=== PATIENT | male | born 1940 | race Caucasian/White ===

== ENCOUNTER 2020-07-16 14:32 | Inpatient (IN) | payer OTHER ==
[~2020-07-16] VITALS: Ht 188 cm; Wt 77.2 kg
[~2020-07-16 14:32] MED LIST: ALBU1AER4 IN; ALPHTAB PO; AMIO200T33 PO; ASCO500T11 PO; B-COCAP36 PO; CAR3125T PO; DOXY-338 PO; ESCI20TA51 PO; FURO40TA4 PO; LEVO50TA7 PO; LISI2.5T47 PO; LOVA40TA72 PO; NITR0.4S29 SL; OMEG1CAP59 PO; POTA10TA51 PO; RANO500T2 PO; WARF1TAB36 PO
[2020-07-16 15:37] LABS: Basophils # (auto) 0 10 ^3/uL (0-0.2); Basophils % (auto) 0.4 % (0.0-2.0); Eosinophils # (auto) 0.2 10 ^3/uL (0-0.8); Eosinophils % (auto) 3.6 % (0.0-7.0); Hematocrit 37.4 % (41.0-53.0); Hemoglobin 12.3 g/dL (13.5-17.5); Lymphocytes % (auto) 23.1 % (10.0-50.0); Mean Corpuscular Hemoglobin 31.5 pg (28.0-32.0); Mean Corpuscular Hgb Conc. 32.8 g/dL (32.0-36.0); Mean Corpuscular Volume 95.9 fL (80.0-100.0); Monocytes # (auto) 0.5 10 ^3/uL (0-1.3); Monocytes % (auto) 11.2 % (0.0-12.0); Neutrophils # (auto) 2.7 10 ^3/uL (1.6-8.6); Neutrophils % (auto) 61.7 % (37.0-80.0); Nucleated Red Blood Cells % 0.1 %; Platelet Count (auto) 136 10^3/uL (140-450); Red Cell Distribution Width 15.1 % (11.8-14.3); White Blood Cell 4.4 10^3/uL (4.4-10.8)
[2020-07-16 15:49] LABS: Albumin 3.3 g/dL (3.4-5.0); Calcium 8.5 mg/dL (8.5-10.1); Potassium 4.5 mmol/L (3.5-5.1)
[2020-07-16 15:52] LABS: BUN/Creatinine Ratio 26.8; Bilirubin, Total 1.1 mg/dL (0.2-1.0); Total Protein 6.8 g/dL (6.4-8.2)
[2020-07-16 15:53] LABS: CRP High Sensitivity 0.6 mg/dL (< 0.3)
[2020-07-16] MEDS ORDERED: ASPirin 81 mg TAB PO ONE (16:15)
[2020-07-16] MEDS ORDERED: ENOXAPARIN SOD 80 MG/0.8ML SYRINGE SC ONE (16:15)
[2020-07-16] MEDS ORDERED: MORPHINE SULF INJ 2 MG/ML SYRINGE 1ML IV PRN ×2 (17:00→17:30)
[2020-07-16] MEDS ORDERED: NITROGLYCERIN 0.4 MG SL TAB SL PRN (17:00)
[2020-07-16 17:20] LABS: INR 1.36 (0.9-1.15)
[2020-07-16] MEDS ORDERED: ONDANSETRON HCL 4 MG/2 ML VIAL IV PRN (17:30)
[2020-07-16] MEDS ORDERED: LACTULOSE 20Gm/30ML SOLN PO PRN (17:30)
[2020-07-16] MEDS ORDERED: NITROGLYCERIN 0.4 MG SL TAB SL SCH (17:30)
[2020-07-16] MEDS ORDERED: ACETAMINOPHEN 500 MG TAB PO PRN (17:30)
[2020-07-16] MEDS ORDERED: traMADol HCL 50 MG TAB PO PRN (17:30)
[2020-07-16] MEDS ORDERED: IOHEXOL 350 MG/ML 100ML IJ ONE (17:40)
[2020-07-16] MEDS ORDERED: WARFARIN SODIUM 1 MG TAB PO ONE (17:45)
[2020-07-16] MEDS: CITALOPRAM HYDROBR 20 MG TAB PO SCH (18:41)
[2020-07-16 21:09] VITALS: BP 102/64
--- NOTE | 2020-07-16 21:09 | NUR ---
Telemetry admit from ER SHADIANA PAULA admitted to Telemetry unit after no SBAR was received.Patient oriented to BRENNA GOULD RN primary RN, unit, room, bed, and unit policies regarding patient care and visiting hours. Patient now on continuous telemetry monitoring, tele box #[id number] and telemetry reading on arrival to unit is Paced in the 60s. Patient weighed by bed scale and encouraged to call if they need something. All questions and concerns addressed, patient verbalized understanding.
[2020-07-16 22:00] VITALS: BP 102/64
[2020-07-16] MEDS: FATTY ACIDS PO SCH (22:00)
[2020-07-16] MEDS: OMEGA PO SCH (22:00)
[2020-07-16] MEDS: SODIUM CHLOR 0.9% PF (SALINE LOCK) 10ML VIAL/SYR IV SCH (22:01)
[2020-07-16] MEDS: ENOXAPARIN SOD 80 MG/0.8ML SYRINGE SC SCH (22:01)
[2020-07-16] MEDS: PRAVASTATIN SODIUM 20 MG TAB PO SCH (22:01)
[2020-07-17 05:00] VITALS: BP 112/68
[2020-07-17] MEDS: SODIUM CHLOR 0.9% PF (SALINE LOCK) 10ML VIAL/SYR IV SCH ×3 (06:04→20:44)
[2020-07-17] MEDS: LEVOTHYROXINE SODIUM 50 MCG TAB PO SCH (06:04)
[2020-07-17 06:24] LABS: INR 1.34 (0.9-1.15); Partial Thromboplastin Time 46.4 sec (23.0-31.2)
--- NOTE | 2020-07-17 07:30 | NUR ---
Opening Shift Note Assuming care of patient at this time. Patient is awake and alert. Patient denies pain. Patient shows no signs or symptoms of distress or shortness of breath. Bed is locked and lowered with side rails up x2. Instructed patient on the plan of care for today and to call for assistance as needed. Call light within reach. Will continue to round hourly and as needed.
[2020-07-17 08:25] VITALS: BP 109/63
[2020-07-17 09:58] LABS: Urine Bacteria NONE SEEN /hpf (None Seen); Urine Blood TRACE /uL (Negative); Urine WBC 4 /hpf (0 - 3)
[2020-07-17] MEDS: FATTY ACIDS PO SCH ×2 (10:00→20:44)
[2020-07-17] MEDS: B COMPLEX PO SCH (10:00)
[2020-07-17] MEDS: BIOTIN PO SCH (10:00)
[2020-07-17] MEDS: OMEGA PO SCH ×2 (10:00→20:44)
[2020-07-17] MEDS: FOLIC ACI PO SCH (10:00)
[2020-07-17] MEDS: ASCORBIC ACID 500 MG TAB PO SCH (10:10)
[2020-07-17] MEDS: RANOLAZINE ER 500 MG TAB PO SCH (10:11)
[2020-07-17] MEDS: AMIODARONE HCL 200 MG TAB PO SCH (10:12)
[2020-07-17] MEDS: LISINOPRIL 5 MG TAB PO SCH (10:13)
[2020-07-17] MEDS: ENALAPRIL MALEATE 2.5 MG TAB PO SCH (10:13)
[2020-07-17] MEDS: CARVEDILOL 3.125 MG TAB PO SCH ×2 (10:14→20:44)
[2020-07-17] MEDS: ENOXAPARIN SOD 80 MG/0.8ML SYRINGE SC SCH ×2 (10:15→20:44)
[2020-07-17] MEDS: NITROGLYCERIN 0.2MG/HR TOPICAL PATCH TD SCH (10:15)
--- NOTE | 2020-07-17 11:45 | NUR ---
WOUND CARE NOTE: WOUND CARE IN TO SEE PATIENT PER BEDSIDE NURSE PHOTOGRAPHS. PATIENT ADMITTED TO [facility] FOR CHEST PAIN. PATIENT NOTED TO HAVE SKIN INTEGRITY ISSUE UPON ADMISSION. PHOTOGRAPH TAKEN BY BEDSIDE NURSE FOR REFERENCE AT THAT TIME. PATIENT NOTED TO HAVE REDDENING TO SACRUM. PATIENT EMILY SCORE IS 19. ZGUARD APPLIED TO SACRUM AND COVERED WITH OPTIFOAM GENTLE SACRAL DRESSING. NO OTHER SKIN INTEGRITY ISSUE NOTED. RECOMMENDATION: BID/PRN MOISTURE BARRIER CREAM APPLICATION TO SACRUM. FREQUENT Q2HOUR REPOSITIONING CONDITION PERMITS. SKIN/WOUND CARE PLAN. CONTINUED MONITORING BY WOUND CARE TEAM. Addendum: 07/17/20 at 1332 by ERIKA BABIN RN RN Amended: Links added.
--- NOTE | 2020-07-17 12:00 | NUR ---
Cardiology Consult Isabela Maurice NP has completed cardio consult today. Stress test will be done on Monday. Pacemaker interrogation to be completed later today.
[2020-07-17 12:40] VITALS: BP 99/60
--- NOTE | 2020-07-17 13:47 | NUR ---
Pacemaker Interrogation Pacemaker interrogation completed at this time.
--- NOTE | 2020-07-17 14:20 | NUR ---
Stress Test Patient taken off unit for part 1 of stress test at this time.
--- NOTE | 2020-07-17 14:44 | NUR ---
Belongings Patient's valuable belongings, nail clipper and pocket knife returned to patient. Copying Machine Mechanic, Sowmya, is aware.
[2020-07-17] MEDS ORDERED: OPTISON 3ml Vial for INJ IV ONE ×2 (15:46→16:00)
--- NOTE | 2020-07-17 16:18 | NUR ---
Nutrition Assessment Notes Please refer to link for full assessment notes. Est Energy needs: 7340-6526 kcals (20-23 kcal/kgBW) Est Protein needs: 81-89 gms/day (1.0-1.1 gm/kgBW) Will continue to monitor and reassess prn. Addendum: 07/17/20 at [address] Amended: Links added.
[2020-07-17 16:22] VITALS: BP 106/61
--- NOTE | 2020-07-17 17:30 | NUR ---
Wound Care Applied z-guard and optifoam to patient's sacral area at this time. Patient tolerated well. No distress noted. Patient currently up to chair at bedside awaiting dinner.
[2020-07-17] MEDS: CITALOPRAM HYDROBR 20 MG TAB PO SCH (18:20)
--- NOTE | 2020-07-17 19:21 | NUR ---
Closing Shift Note Patient resting in bed. No distress noted. Report given. Will endorse care to the canine deputy RN.
[2020-07-17] MEDS: PRAVASTATIN SODIUM 20 MG TAB PO SCH (20:43)
[2020-07-17 21:52] VITALS: BP 90/55
[2020-07-18 05:05] VITALS: BP 102/63
[2020-07-18] MEDS: SODIUM CHLOR 0.9% PF (SALINE LOCK) 10ML VIAL/SYR IV SCH ×3 (06:15→21:43)
[2020-07-18] MEDS: LEVOTHYROXINE SODIUM 50 MCG TAB PO SCH (06:15)
[2020-07-18 09:00] VITALS: BP 110/62
[2020-07-18] MEDS: ENALAPRIL MALEATE 2.5 MG TAB PO SCH (09:22)
[2020-07-18] MEDS: ASCORBIC ACID 500 MG TAB PO SCH (09:23)
[2020-07-18] MEDS: LISINOPRIL 5 MG TAB PO SCH (09:24)
[2020-07-18] MEDS: RANOLAZINE ER 500 MG TAB PO SCH (09:24)
[2020-07-18] MEDS: AMIODARONE HCL 200 MG TAB PO SCH (09:24)
[2020-07-18] MEDS: CARVEDILOL 3.125 MG TAB PO SCH ×2 (09:25→21:44)
[2020-07-18] MEDS: NITROGLYCERIN 0.2MG/HR TOPICAL PATCH TD SCH (09:27)
[2020-07-18] MEDS: ENOXAPARIN SOD 80 MG/0.8ML SYRINGE SC SCH ×2 (09:29→21:48)
[2020-07-18] MEDS: FATTY ACIDS PO SCH ×2 (09:38→21:44)
[2020-07-18] MEDS: BIOTIN PO SCH (09:38)
[2020-07-18] MEDS: B COMPLEX PO SCH (09:38)
[2020-07-18] MEDS: OMEGA PO SCH ×2 (09:38→21:44)
[2020-07-18] MEDS: FOLIC ACI PO SCH (09:38)
[2020-07-18 13:00] VITALS: BP 98/63
--- NOTE | 2020-07-18 16:40 | NUR ---
Anxiety Patient states he is feeling anxious at this time. Will administer patient's anxiety/depression medication that is scheduled for 1800 at this time.
[2020-07-18] MEDS: CITALOPRAM HYDROBR 20 MG TAB PO SCH (16:41)
[2020-07-18 17:00] VITALS: BP 93/54
--- NOTE | 2020-07-18 18:20 | NUR ---
Wound Care Applied z-guard and optifoam to patient's sacral area at this time. Patient tolerated well. No distress noted.
--- NOTE | 2020-07-18 18:58 | NUR ---
Closing Shift Note Patient resting in bed. No distress noted. Will endorse care to the hotel night auditor RN.
[2020-07-18] MEDS: PRAVASTATIN SODIUM 20 MG TAB PO SCH (21:48)
[2020-07-18 22:00] VITALS: BP 90/62
[2020-07-19 05:00] VITALS: BP 112/63
--- NOTE | 2020-07-19 05:00 | NUR ---
Wound care Provided wound care to sacrum, place optifoam and moisture barrier per MD orders
[2020-07-19] MEDS: SODIUM CHLOR 0.9% PF (SALINE LOCK) 10ML VIAL/SYR IV SCH ×3 (06:14→22:00)
[2020-07-19] MEDS: LEVOTHYROXINE SODIUM 50 MCG TAB PO SCH (06:35)
--- NOTE | 2020-07-19 07:02 | NUR ---
End of Shift Note Endorsed care to dayshift RN. At this time patient has no s/s of distress or SOB.
[2020-07-19 09:00] VITALS: BP 96/62
[2020-07-19] MEDS: ASCORBIC ACID 500 MG TAB PO SCH (09:12)
[2020-07-19] MEDS: AMIODARONE HCL 200 MG TAB PO SCH (09:13)
[2020-07-19] MEDS: RANOLAZINE ER 500 MG TAB PO SCH (09:14)
[2020-07-19] MEDS: ENOXAPARIN SOD 80 MG/0.8ML SYRINGE SC SCH ×2 (09:14→22:37)
[2020-07-19] MEDS: LISINOPRIL 5 MG TAB PO SCH (09:16)
[2020-07-19] MEDS: ENALAPRIL MALEATE 2.5 MG TAB PO SCH (09:16)
[2020-07-19] MEDS: NITROGLYCERIN 0.2MG/HR TOPICAL PATCH TD SCH (09:16)
[2020-07-19] MEDS: FOLIC ACI PO SCH (09:17)
[2020-07-19] MEDS: B COMPLEX PO SCH (09:17)
[2020-07-19] MEDS: FATTY ACIDS PO SCH ×2 (09:17→22:00)
[2020-07-19] MEDS: BIOTIN PO SCH (09:17)
[2020-07-19] MEDS: OMEGA PO SCH ×2 (09:17→22:00)
[2020-07-19] MEDS: CARVEDILOL 3.125 MG TAB PO SCH ×2 (09:17→22:00)
[2020-07-19 13:00] VITALS: BP 107/69
[2020-07-19 16:53] VITALS: BP 109/71
[2020-07-19] MEDS: CITALOPRAM HYDROBR 20 MG TAB PO SCH (17:24)
--- NOTE | 2020-07-19 19:18 | NUR ---
Closing Shift Note Patient resting in bed. No distress noted. Report given. Will endorse care to the overnight cashier RN.
[2020-07-19 22:00] VITALS: BP 120/75
[2020-07-19] MEDS: PRAVASTATIN SODIUM 20 MG TAB PO SCH (22:37)
[2020-07-20 05:00] VITALS: BP 116/67
[2020-07-20] MEDS: SODIUM CHLOR 0.9% PF (SALINE LOCK) 10ML VIAL/SYR IV SCH ×3 (05:50→22:21)
[2020-07-20] MEDS: LEVOTHYROXINE SODIUM 50 MCG TAB PO SCH (06:43)
--- NOTE | 2020-07-20 07:25 | NUR ---
End of Shift Note Endorsed care to dayshift RN. At this time patient has no s/s of distress or SOB.
--- NOTE | 2020-07-20 07:40 | NUR ---
Patient sitting in chair at bedside with no distress noted at this time. Denies any pain. Patient stable.
[2020-07-20 08:30] VITALS: BP 126/76
[2020-07-20] MEDS ORDERED: ADENOSINE 65 MG in GIVE UN-DILUTED 0 ML IV STA (08:36)
--- NOTE | 2020-07-20 09:50 | NUR ---
Patient still sitting in chair at bedside. Patient stable at this time.
--- NOTE | 2020-07-20 11:05 | NUR ---
Patient taken via wheelchair to [facility] for stress test.
[2020-07-20 11:15] VITALS: BP 115/75
[2020-07-20] MEDS: ASCORBIC ACID 500 MG TAB PO SCH (13:28)
[2020-07-20] MEDS: ENOXAPARIN SOD 80 MG/0.8ML SYRINGE SC SCH ×2 (13:28→22:21)
[2020-07-20] MEDS: LISINOPRIL 5 MG TAB PO SCH (13:28)
[2020-07-20] MEDS: OMEGA PO SCH ×2 (13:30→22:00)
[2020-07-20] MEDS: B COMPLEX PO SCH (13:30)
[2020-07-20] MEDS: FOLIC ACI PO SCH (13:30)
[2020-07-20] MEDS: NITROGLYCERIN 0.2MG/HR TOPICAL PATCH TD SCH (13:30)
[2020-07-20] MEDS: BIOTIN PO SCH (13:30)
[2020-07-20] MEDS: AMIODARONE HCL 200 MG TAB PO SCH (13:30)
[2020-07-20] MEDS: FATTY ACIDS PO SCH ×2 (13:30→22:00)
[2020-07-20] MEDS: SACUBITRIL-VALSARTAN 24mg/26mg TAB PO SCH (13:31)
[2020-07-20] MEDS: RANOLAZINE ER 500 MG TAB PO SCH (13:31)
[2020-07-20] MEDS: CARVEDILOL 3.125 MG TAB PO SCH ×2 (13:32→22:00)
--- NOTE | 2020-07-20 13:35 | NUR ---
Scheduled medications given per order. Patient sitting in chair at bedside. Patient stable.
--- NOTE | 2020-07-20 14:09 | NUR ---
Nutrition Followup Notes Pt wt is 77.3 kg. Pt was sitting in a chair sleeping with no relatives at bedside when rounded this morning. Pt is with a 2gm Sodium diet, appetite is good aeb 100% PO intake per RN doc. Est Energy needs: 9118-6392 kcals (20-23 kcal/kgBW) Est Protein needs: 81-89 gms/day (1.0-1.1 gm/kgBW) Will continue to monitor and reassess prn. LABS: TROPONIIN 0.071 H, ALB 3.3 L GI: Pt had 2 BM on 07/19 per RN doc BS: 19 low risk. Refer to wound assessment report for full details. PES: No current Nutritional Pr Comments Will continue to monitor PO status, skin status, pertinent labs and weight trends. Will f/u in 3-5 days. 1) Continue to closely monitor pt PO intake to meet at least 75% of meals 2) Continue current plan of care
--- NOTE | 2020-07-20 15:00 | NUR ---
Patient stable while sitting in chair at bedside.
[2020-07-20 16:43] VITALS: BP 95/46
[2020-07-20] MEDS: CITALOPRAM HYDROBR 20 MG TAB PO SCH (18:17)
--- NOTE | 2020-07-20 18:17 | NUR ---
Patient sitting in chair at bedside, eating dinner. Scheduled medication given per order. Patient denies any pain at this time. Patient stable.
[2020-07-20 22:03] VITALS: BP 93/56
[2020-07-20] MEDS: PRAVASTATIN SODIUM 20 MG TAB PO SCH (22:21)
[2020-07-21 05:00] VITALS: BP 91/52
[2020-07-21 05:51] VITALS: BP 91/52
[2020-07-21] MEDS: SODIUM CHLOR 0.9% PF (SALINE LOCK) 10ML VIAL/SYR IV SCH ×3 (06:35→21:52)
[2020-07-21] MEDS: LEVOTHYROXINE SODIUM 50 MCG TAB PO SCH (06:35)
--- NOTE | 2020-07-21 07:30 | NUR ---
Patient asleep while sitting in chair at bedside. No distress noted at this time.
--- NOTE | 2020-07-21 08:15 | NUR ---
Patient sitting in chair at bedside. Denies any pain at this time. Patient stable.
[2020-07-21 08:17] LABS: Basophils # (auto) 0 10 ^3/uL (0-0.2); Basophils % (auto) 0.7 % (0.0-2.0); Eosinophils # (auto) 0.3 10 ^3/uL (0-0.8); Eosinophils % (auto) 7.2 % (0.0-7.0); Hemoglobin 12.4 g/dL (13.5-17.5); Lymphocytes # (auto) 0.8 10 ^3/uL (0.4-5.4); Lymphocytes % (auto) 22.4 % (10.0-50.0); Mean Corpuscular Hemoglobin 31.8 pg (28.0-32.0); Mean Corpuscular Hgb Conc. 33.6 g/dL (32.0-36.0); Mean Corpuscular Volume 94.6 fL (80.0-100.0); Monocytes # (auto) 0.4 10 ^3/uL (0-1.3); Monocytes % (auto) 11.5 % (0.0-12.0); Neutrophils # (auto) 2.1 10 ^3/uL (1.6-8.6); Neutrophils % (auto) 58.2 % (37.0-80.0); Nucleated Red Blood Cells % 0.3 %; Platelet Count (auto) 134 10^3/uL (140-450); Red Blood Cells 3.91 10^6/uL (4.5-5.90); Red Cell Distribution Width 14.9 % (11.8-14.3); White Blood Cell 3.6 10^3/uL (4.4-10.8)
[2020-07-21 08:32] LABS: INR 1.19 (0.9-1.15); Partial Thromboplastin Time 40.4 sec (23.0-31.2)
[2020-07-21 08:35] LABS: Calcium 8.2 mg/dL (8.5-10.1); Potassium 4.2 mmol/L (3.5-5.1)
[2020-07-21 08:38] LABS: BUN/Creatinine Ratio 30.6
[2020-07-21 08:56] VITALS: BP 101/60
[2020-07-21] MEDS: AMIODARONE HCL 200 MG TAB PO SCH (09:50)
[2020-07-21] MEDS: BIOTIN PO SCH (09:50)
[2020-07-21] MEDS: FATTY ACIDS PO SCH ×2 (09:50→21:52)
[2020-07-21] MEDS: OMEGA PO SCH ×2 (09:50→21:52)
[2020-07-21] MEDS: B COMPLEX PO SCH (09:50)
[2020-07-21] MEDS: FOLIC ACI PO SCH (09:50)
[2020-07-21] MEDS: SACUBITRIL-VALSARTAN 24mg/26mg TAB PO SCH (09:51)
[2020-07-21] MEDS: CARVEDILOL 3.125 MG TAB PO SCH ×2 (09:51→21:52)
[2020-07-21] MEDS: ASCORBIC ACID 500 MG TAB PO SCH (09:51)
[2020-07-21] MEDS: RANOLAZINE ER 500 MG TAB PO SCH (09:51)
[2020-07-21] MEDS: NITROGLYCERIN 0.2MG/HR TOPICAL PATCH TD SCH (09:51)
[2020-07-21] MEDS: LISINOPRIL 5 MG TAB PO SCH (09:52)
[2020-07-21] MEDS: ENOXAPARIN SOD 80 MG/0.8ML SYRINGE SC SCH (09:57)
--- NOTE | 2020-07-21 09:58 | NUR ---
Patient sitting in chair at bedside. Morning medications withheld; patient NPO for heart cath today at 1300.
--- NOTE | 2020-07-21 10:59 | NUR ---
Patient stable with Dr. Crain at bedside. Patient sitting in chair.
--- NOTE | 2020-07-21 11:55 | NUR ---
Patient taken to [facility] via gurney.
[2020-07-21] MEDS ORDERED: ANGIOMAX 250 MG VIAL IV ONE (12:11)
[2020-07-21] MEDS ORDERED: IOHEXOL 350 MG/ML 100ML IJ ONE (12:12)
[2020-07-21] MEDS ORDERED: fentaNYL CITRATE 100 MCG/2 ML VL ONE (12:12)
[2020-07-21] MEDS ORDERED: SODIUM CHL 0.9% 50 ML ONE (12:12)
[2020-07-21] MEDS ORDERED: MIDAZOLAM HCL 1MG/1ML-2 ML VIAL ONE (12:12)
[2020-07-21] MEDS ORDERED: LIDOCAINE 2%HCL (LOCAL ANESTH.) INJ 20ML MDV ONE (12:12)
[2020-07-21] MEDS ORDERED: CLOPIDOGREL 300 MG TAB ONE (13:00)
[2020-07-21] MEDS ORDERED: ASPirin 325 MG TAB ONE (13:00)
[2020-07-21] MEDS ORDERED: CLOPIDOGREL BISULFATE 75 MG TAB PO ONE (13:30)
--- NOTE | 2020-07-21 14:00 | NUR ---
Received report from Lidar Technician: stented graft to LAD.
--- NOTE | 2020-07-21 14:15 | NUR ---
Patient returned to unit in stable condition with clean, dry dressing in right groin. Patient stable with no pain or discomfort.
--- NOTE | 2020-07-21 15:45 | NUR ---
Patient asleep with no distress noted.
[2020-07-21 17:00] VITALS: BP 116/71
--- NOTE | 2020-07-21 17:20 | NUR ---
Patient resting comfortably in bed with eyes closed. No distress noted.
[2020-07-21] MEDS: CITALOPRAM HYDROBR 20 MG TAB PO SCH (18:48)
[2020-07-21] MEDS: PRAVASTATIN SODIUM 20 MG TAB PO SCH (21:53)
[2020-07-21 22:00] VITALS: BP 100/53
[2020-07-22 05:00] VITALS: BP 91/54
[2020-07-22] MEDS: LEVOTHYROXINE SODIUM 50 MCG TAB PO SCH (06:32)
[2020-07-22] MEDS: SODIUM CHLOR 0.9% PF (SALINE LOCK) 10ML VIAL/SYR IV SCH (06:32)
[2020-07-22 08:00] VITALS: BP 113/65
--- NOTE | 2020-07-22 08:00 | NUR ---
Patient sitting in chair at bedside. Denies any pain at this time. Patient stable.
[2020-07-22 09:00] VITALS: BP 113/65
[2020-07-22] MEDS: SACUBITRIL-VALSARTAN 24mg/26mg TAB PO SCH (09:47)
[2020-07-22] MEDS: AMIODARONE HCL 200 MG TAB PO SCH (09:47)
[2020-07-22] MEDS: RANOLAZINE ER 500 MG TAB PO SCH (09:47)
[2020-07-22] MEDS: ASCORBIC ACID 500 MG TAB PO SCH (09:47)
[2020-07-22] MEDS: LISINOPRIL 5 MG TAB PO SCH (09:49)
[2020-07-22] MEDS: NITROGLYCERIN 0.2MG/HR TOPICAL PATCH TD SCH (09:49)
[2020-07-22] MEDS: CARVEDILOL 3.125 MG TAB PO SCH (09:50)
--- NOTE | 2020-07-22 09:50 | NUR ---
Scheduled morning medications given per order. Patient sitting in chair at bedside with no complaint of pain or discomfort. Patient stable.
[2020-07-22] MEDS: FATTY ACIDS PO SCH (09:52)
[2020-07-22] MEDS: BIOTIN PO SCH (09:52)
[2020-07-22] MEDS: OMEGA PO SCH (09:52)
[2020-07-22] MEDS: FOLIC ACI PO SCH (09:52)
[2020-07-22] MEDS: B COMPLEX PO SCH (09:52)
[2020-07-22] MEDS ORDERED: CLOPIDOGREL BISULFATE 75 MG TAB PO SCH (10:00)
[2020-07-22] MEDS ORDERED: ASPirin 81 mg TAB PO SCH (10:00)
--- NOTE | 2020-07-22 10:10 | NUR ---
Received call from Hailey at [facility] regarding patient's discharge. Advised patient will probably be discharged today, but no discharge order yet. (Hailey's ph# [phone])
--- NOTE | 2020-07-22 10:45 | NUR ---
Patient sitting in chair with Dr. Crain at bedside. Patient stable.
[2020-07-22 11:39] VITALS: BP 108/67
--- NOTE | 2020-07-22 12:30 | NUR ---
Patient sitting in chair at bedside; stable.
[2020-07-22 13:00] VITALS: BP 97/65
--- NOTE | 2020-07-22 13:35 | NUR ---
Discharge instructions Both written and verbal discharge instructions given to patient. Patient will contact [facility] for follow-up visit. Patient verbalized understanding of instructions. Written prescriptions given as well. Patient advised to take all medications as prescribed. All belongings with patient. Patient sitting in chair at bedside.
--- NOTE | 2020-07-22 13:50 | NUR ---
Discharge Peripheral IV removed intact with no active bleeding; covered with gauze. Patient tolerated well. Patient discharged to home in stable condition.
== END 2020-07-22 13:50 | disposition home or self-care (01) | DRG 246 ==
LOC: ER 14:32 → TELE 14:33 → TELE-WESTW 21:09
PROVIDERS: ADMIT Internal Medicine; ATTEND Family Medicine
PROC: 027034Z Dilation of Coronary Artery, One Artery with Drug-eluting Intraluminal Device, Percutaneous Approach (ICD-10-PCS; principal; 2020-07-21)
PROC: 4A023N7 Measurement of Cardiac Sampling and Pressure, Left Heart, Percutaneous Approach (ICD-10-PCS; 2020-07-21)
PROC: B2131ZZ Fluoroscopy of Multiple Coronary Artery Bypass Grafts using Low Osmolar Contrast (ICD-10-PCS; 2020-07-21)
PROC: B2181ZZ Fluoroscopy of Left Internal Mammary Bypass Graft using Low Osmolar Contrast (ICD-10-PCS; 2020-07-21)
PROC: B2111ZZ Fluoroscopy of Multiple Coronary Arteries using Low Osmolar Contrast (ICD-10-PCS; 2020-07-21)
PROC: B3121ZZ Fluoroscopy of Left Subclavian Artery using Low Osmolar Contrast (ICD-10-PCS; 2020-07-21)
DX: I21.4 Non-ST elevation (NSTEMI) myocardial infarction (principal); I50.23 Acute on chronic systolic (congestive) heart failure; J90 Pleural effusion, not elsewhere classified; I25.10 Atherosclerotic heart disease of native coronary artery without angina pectoris; I11.0 Hypertensive heart disease with heart failure; E78.5 Hyperlipidemia, unspecified; Z95.1 Presence of aortocoronary bypass graft; Z95.810 Presence of automatic (implantable) cardiac defibrillator; E03.9 Hypothyroidism, unspecified; E78.00 Pure hypercholesterolemia, unspecified; I71.2 Thoracic aortic aneurysm, without rupture; I25.5 Ischemic cardiomyopathy; I48.0 Paroxysmal atrial fibrillation; I27.20 Pulmonary hypertension, unspecified; Z79.01 Long term (current) use of anticoagulants; Z82.49 Family history of ischemic heart disease and other diseases of the circulatory system; Z98.61 Coronary angioplasty status
CPT/HCPCS: 36415; 71045; 71275; 78452; 80048; 80053; 81001; 82550; 82728; 83615; 83880; 84484; 85025; 85379; 85610; 85730; 86141; 93017; 93306; 96372; 99152; 99153; C1874; G0378; J0153; J2250; Q9956

== ENCOUNTER 2020-11-03 13:34 | Emergency (ER) | payer OTHER ==
[~2020-11-03] VITALS: Ht 188 cm; Wt 72.6 kg
[~2020-11-03 13:34] MED LIST changes: -ALBU1AER4 IN; -ALPHTAB PO; -AMIO200T33 PO; -ASCO500T11 PO; -B-COCAP36 PO; -FURO40TA4 PO; -OMEG1CAP59 PO; -RANO500T2 PO; -WARF1TAB36 PO
[2020-11-03] MEDS ORDERED: SODIUM CHLORIDE 0.9% 500 ML IV ONE (14:00)
[2020-11-03 14:36] LABS: Basophils # (auto) 0 10 ^3/uL (0-0.2); Basophils % (auto) 0.3 % (0.0-2.0); Eosinophils # (auto) 0.2 10 ^3/uL (0-0.8); Eosinophils % (auto) 4.1 % (0.0-7.0); Hematocrit 38.3 % (41.0-53.0); Hemoglobin 12.6 g/dL (13.5-17.5); Lymphocytes # (auto) 0.7 10 ^3/uL (0.4-5.4); Lymphocytes % (auto) 14.1 % (10.0-50.0); Mean Corpuscular Hemoglobin 31.4 pg (28.0-32.0); Mean Corpuscular Hgb Conc. 33.1 g/dL (32.0-36.0); Mean Corpuscular Volume 94.9 fL (80.0-100.0); Monocytes # (auto) 0.6 10 ^3/uL (0-1.3); Monocytes % (auto) 11.5 % (0.0-12.0); Neutrophils # (auto) 3.7 10 ^3/uL (1.6-8.6); Platelet Count (auto) 161 10^3/uL (140-450); Red Blood Cells 4.03 10^6/uL (4.5-5.90); Red Cell Distribution Width 14.4 % (11.8-14.3); White Blood Cell 5.2 10^3/uL (4.4-10.8)
[2020-11-03 15:04] LABS: Albumin 3.3 g/dL (3.4-5.0); Anion Gap 5 (5-15); BUN/Creatinine Ratio 24.1; Blood Urea Nitrogen 19 mg/dL (7-18); Calcium 8.6 mg/dL (8.5-10.1); Carbon Dioxide 26 mmol/L (21-32); Chloride 107 mmol/L (98-107); GFR African American 121 mL/min; GFR Non-African American 100 mL/min; Glucose 102 mg/dL (74-106); Potassium 4.2 mmol/L (3.5-5.1); Sodium 138 mmol/L (136-145)
[2020-11-03 15:09] LABS: Alanine Aminotransferase 20 U/L (16-61); Alkaline Phosphatase 106 U/L (45-117); Aspartate Aminotransferase 21 U/L (15-37); Bilirubin, Total 1.9 mg/dL (0.2-1.0); Total Protein 7.5 g/dL (6.4-8.2)
[2020-11-03 16:40] VITALS: BP 128/55
== END 2020-11-03 16:49 | disposition home or self-care (01) ==
LOC: ER 13:34
DX: R53.1 Weakness (principal); I11.0 Hypertensive heart disease with heart failure; I50.9 Heart failure, unspecified; E78.5 Hyperlipidemia, unspecified; Z79.899 Other long term (current) drug therapy
CPT/HCPCS: 36415; 71046; 80053; 84484; 85025; 93005